=== PATIENT | female | born 1995 | race Caucasian/White ===

== ENCOUNTER 2017-01-03 07:56 | Emergency (ER) | payer MEDICAID ==
--- NOTE | ~2017-01-03 | ER ---
PATIENT'S NAME: JASON BROWN [facility] AGE: 21 Y [address] ROOM: [place] [address] LOCATION: [facility] ADMIT DATE: 01/03/2017 ER/Outpatient Report DISCHARGE DATE: 01/03/2017 FAMILY PHYSICIAN: PHYSICIAN, NO ATTENDING PHYSICIAN: Keo England Time of Arrival: 0756 hours. Time of Evaluation: 0815 hours. CHIEF COMPLAINT: Increased swelling to a Bartholin cyst. HISTORY OF PRESENT ILLNESS: The patient is a 21-year-old female, who presents to the emergency department today with chief complaint of increased swelling to Bartholin cyst. She reports she has been seen at the clinic in [place] for this, but they would not drain it. They told her to come to the emergency department if it got worse. The pain got worse last night, swelling got worse. The pain is currently 7/10 in severity. It is sharp, worse with touch. She denies any fevers or chills. No nausea or vomiting. No diarrhea or constipation. Denies any vaginal bleeding. No vaginal discharge. No fluid leak. She has noted some leakage from the area around the cyst. The patient is 15 weeks' . PAST MEDICAL HISTORY: None. PAST SURGICAL HISTORY: Tonsils. SOCIAL HISTORY: The patient smokes 6 cigarettes per day. Denies any alcohol or illicit drug use. ALLERGIES: NO KNOWN DRUG ALLERGIES. MEDICATIONS: Please see list. PRIMARY CARE DOCTOR: None. COLLECTION AGENT: [facility]. PATIENT'S NAME: JASON BROWN [facility] AGE: 21 Y [address] ROOM: [place] [address] LOCATION: [facility] ADMIT DATE: 01/03/2017 ER/Outpatient Report DISCHARGE DATE: 01/03/2017 FAMILY PHYSICIAN: PHYSICIAN, NO ATTENDING PHYSICIAN: Keo England REVIEW OF SYSTEMS: All systems are reviewed by myself and are negative with the exception of those discussed in the HPI and past medical history. PHYSICAL EXAMINATION: VITAL SIGNS: Weight 75.7 kg. Blood pressure 105/71, pulse 117, respiratory rate 20, temperature 97.6, and oxygen saturation 97% on room air. GENERAL: The patient is a 21-year-old female, who appears at her stated age, in mild acute distress secondary to pain. HEENT: Head: Normocephalic, atraumatic. Pupils are equal, round, and reactive to light and accommodation. Extraocular motions are intact. Nares are patent bilaterally. TMs are clear. Oropharynx is clear. NECK: Supple. There is no nuchal rigidity. CARDIOVASCULAR: Tachycardic. No murmurs, rubs, or gallops. LUNGS: Clear to auscultation bilaterally. No wheezes, rales, or rhonchi. ABDOMEN: Gravid, soft, nontender nondistended. No rebound, rigidity, or guarding. Positive bowel sounds. MUSCULOSKELETAL: The patient moves all 4 extremities. GENITOURINARY: The patient does have a fluctuant erythematous draining abscess to the left labia. There is purulent drainage noted. SKIN: Warm and dry. LABORATORY DATA AND X-RAYS: None. IMPRESSION: 1. Acute Bartholin cyst with abscess. 2. Initial visit. EMERGENCY DEPARTMENT COURSE: The patient is brought back to the examination room. Seen and evaluated by myself. I have discussed the risks and benefits of incision and drainage of this. The area of the Bartholin's abscess does appear to already have an open area that is draining. I did use 1% lidocaine without epinephrine for local infiltration. A #11 blade is used to open the draining area and purulence is expressed. A piece of quarter-inch iodoform packing is placed. I have written a prescription for Suprax and clindamycin for home. The patient does have an appointment with [facility] today this afternoon. She is to continue to make this appointment. I did perform a bedside ultrasound; as was performed by myself, does reveal an intrauterine with positive movement and a heart rate of 158. I have discussed [id number] instructions including any high fevers or any other concerns to return to the emergency department as soon as possible. The patient is agreeable without further questions at this time. PATIENT'S NAME: JASON BROWN [facility] AGE: 21 Y [address] ROOM: [place], [place] [address] LOCATION: ED ADMIT DATE: 01/03/2017 ER/Outpatient Report DISCHARGE DATE: 01/03/2017 FAMILY PHYSICIAN: PHYSICIAN, NO ATTENDING PHYSICIAN: Keo England DISPOSITION: The patient is discharged to home in good condition. DO MICHAEL MEJIA/terence /[id number] d: 01/03/17 1009 t: 01/05/17 0156, OUTPATIENT REPORT
== END 2017-01-03 09:10 | disposition disaster alternative care site (69) ==
LOC: GMED 07:56
PROC: 0U9L0ZX Drainage of Vestibular Gland, Open Approach, Diagnostic (ICD-10-PCS; principal; 2017-01-03)
DX: N75.1 Abscess of Bartholin's gland (principal); N75.0 Cyst of Bartholin's gland; F17.210 Nicotine dependence, cigarettes, uncomplicated; Z98.890 Other specified postprocedural states
CPT/HCPCS: J2270